=== PATIENT | male | born 1965 ===

== ENCOUNTER 2017-01-25 06:12 | Day surgery (SDC) | payer OTHER ==
[2017-01-24 10:02] VITALS: BMI 38.9
[2017-01-25] MEDS ORDERED: Propofol 10 mg/ml Inj (20 ML) ONE (07:15)
[2017-01-25] MEDS ORDERED: Succinylcholine 200 mg/10 ml Inj IV ONE (07:16)
[2017-01-25] MEDS ORDERED: ePHEDrine 50 mg/ml Inj ONE ×3 (07:16→08:51)
[2017-01-25] MEDS ORDERED: Midazolam 2 MG/2 ML VIAL ONE (07:16)
[2017-01-25] MEDS ORDERED: Rocuronium 10 mg/ml (5 ml) ONE (07:16)
[2017-01-25] MEDS ORDERED: SENSORCAINE 0.5% W/EPINEPHRINE 50ML MDV IJ ONE (07:21)
[2017-01-25] MEDS ORDERED: Lidocaine 2% w Epi 1:100,000 Inj IJ ONE (07:22)
[2017-01-25] MEDS ORDERED: Lactated Ringer's 1,000 ML IV ONE (08:10)
[2017-01-25] MEDS ORDERED: Dexamethasone 4 mg/1 ml ONE (08:51)
[2017-01-25] MEDS ORDERED: Lactated Ringer's 1,000 ML IV SCH (09:57)
[2017-01-25] MEDS ORDERED: HYDROmorphone 0.5 mg/0.5 ml ISec IVP PRN ×2 (09:57→10:40)
[2017-01-25] MEDS ORDERED: Oxycodone/Acetaminophen 5/325 mg Tab PO PRN ×2 (09:57)
[2017-01-25 10:58] VITALS: RESP 18
--- NOTE | 2017-01-25 11:18 | PCM.SURG1 ---
Surgeon's Initial Post Op Note - Surgeon's Notes Surgeon: Mily Youssef MD Online Content Coordinator: Lizy Paredes PA-C Type of Anesthesia: General Endo Pre-Operative Diagnosis: Right Shoulder Partial Rotator Cuff Tear Operative Findings: See op report Post-Operative Diagnosis: Same as pre-op dx Operation Performed: Right Shoulder Arthroscopy, Subacromial Decompression, AC resection , and extensive debriedement Specimen/Specimens Removed: None Estimated Blood Loss: EBL {In ML}: 5 Date of Surgery/Procedure: 01/25/17 Time of Surgery/Procedure: 08:00
[2017-01-25 11:45] VITALS: O2SAT 97
[2017-01-25 13:17] VITALS: BP 130/86; PULSE 83; TEMP 97.6
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
== END 2017-01-25 13:24 | disposition home or self-care (01) ==
LOC: H.OPSURG 06:12
PROVIDERS: ATTEND Orthopaedic Surgery
DX: M65.811 Other synovitis and tenosynovitis, right shoulder (principal); J45.909 Unspecified asthma, uncomplicated; G47.33 Obstructive sleep apnea (adult) (pediatric); S43.491A Other sprain of right shoulder joint, initial encounter; X58.XXXA Exposure to other specified factors, initial encounter; M75.101 Unspecified rotator cuff tear or rupture of right shoulder, not specified as traumatic